=== PATIENT | female | born 1940 | race Caucasian/White ===

== ENCOUNTER 2019-12-18 07:12 | Inpatient (IN) | payer MEDICARE, OTHER ==
[~2019-12-18] VITALS: Ht 175.3 cm; Wt 75.5 kg
[~2019-12-18 07:12] MED LIST: ACET-2065 PO; ALBU8.5H5 INH; AMLO5TAB4 PO; ASPI-624 PO; ATEN25TA PO; AZIT250T PO; BUDE10.2 INH; CEFU500T PO; HYDR25TA6 PO; NICO-487 TD; PRED20TA PO
--- NOTE | 2019-12-18 07:17 | NUR ---
THIS IS A 79 YEAR OLD FEMALE WHO WAS BIB BY AMBULANCE DUE TO SOB X 2 DAYS PT HAS HX OF COPD. PT HAS HOME OXYGEN AT 5LNC. PT RECEIVED DUONEB AND ALBUTERAL IN ROUTE. PT A&O X 4, SOB WITH MINIMAL EXCERTION. 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 AND CYCLE VS. AT BS.
[2019-12-18] MEDS ORDERED: DEXAMETHASONE 4 MG/ML, 1ML IVPush ONE (07:30)
[2019-12-18] MEDS ORDERED: DEXAMETHASONE 4 MG/ML, 1ML ONE (07:33)
--- NOTE | 2019-12-18 07:41 | NUR ---
TASK RN NOTE: PT MEDICATED PER EMAR. LAB AT BEDSIDE. HOB TO LEVEL OF COMFORT. REMAINS AT BEDSIDE.
--- NOTE | 2019-12-18 07:55 | NUR ---
SPOKE WITH RT DENISE REGARDING POSSIBLE CPAP
[2019-12-18] MEDS ORDERED: ALBUTEROL/IPRATROPIUM 2.5MG/0.5MG, 3 ML ONE (08:07)
[2019-12-18 08:08] LABS: BASOPHILS # (AUTO) 0.03 x10^3/uL (0-0.1); BASOPHILS % (AUTO) 1 % (0-1); EOSINOPHILS # (AUTO) 0.11 x10^3/uL (0-0.4); EOSINOPHILS % (AUTO) 2 % (1-7); LYMPHOCYTES # (AUTO) 1.07 x10^3/uL (1-3.4); LYMPHOCYTES % (AUTO) 15 % (22-44); MD NO; MEAN CORPUSCULAR HEMOGLOBIN 31.3 pg (27.0-34.8); MEAN CORPUSCULAR HGB CONC 33.3 g/dL (32.4-35.8); MEAN PLATELET VOLUME 9.6 fL (7.4-10.4); MONOCYTES # (AUTO) 0.71 x10^3/uL (0.2-0.8); MONOCYTES % (AUTO) 10 % (2-9); NEUTROPHILS # (AUTO) 5.06 x10^3/uL (1.8-6.8); NEUTROPHILS % (AUTO) 73 % (42-75); PLATELET COUNT 189 x10^3/uL (130-400); RED BLOOD COUNT 4.35 x10^6/uL (3.82-5.3); RED CELL DISTRIBUTION WIDTH 14.4 % (9.6-15.2)
--- NOTE | 2019-12-18 08:11 | NUR ---
HOWIE RT IN ROOM, PT STATES SHE DOES NOT WANT A C-PAP.
[2019-12-18 08:22] LABS: ALBUMIN 3.8 g/dL (3.4-5.0); ANION GAP 5 mmol/L (5-15); CALCIUM 9.4 mg/dL (8.5-10.1); CHLORIDE 101 mmol/L (98-107)
[2019-12-18 08:27] LABS: ALANINE AMINOTRANSFERASE 21 U/L (12-78); ALKALINE PHOSPHATASE 67 U/L (45-117); BILIRUBIN,TOTAL 0.4 mg/dL (0.2-1.0); CREATININE 0.72 mg/dL (0.55-1.02); TOTAL PROTEIN 6.9 g/dL (6.4-8.2)
[2019-12-18] MEDS ORDERED: ALBUTEROL/IPRATROPIUM 2.5MG/0.5MG, 3 ML NEB ONE (08:30)
--- NOTE | 2019-12-18 08:32 | NUR ---
PT RESTING, RESP LABORED, HEAD OF BED UP.
[2019-12-18 08:40] LABS: PROTIME 9.4 Seconds (9.6-11.5)
[2019-12-18] MEDS ORDERED: POTASSIUM CHLORIDE 10% 40 MEQ/30 ML UDC PO ONE (09:00)
[2019-12-18] MEDS ORDERED: POTASSIUM CHLORIDE 20 MEQ PACKET ONE (09:08)
--- NOTE | 2019-12-18 09:13 | NUR ---
ORDERED MEDICATION FROM PHARMACY.
--- NOTE | 2019-12-18 09:14 | NUR ---
PT WILL BE ADMITTED, COPD AND R/O COVID-19
--- NOTE | 2019-12-18 09:20 | NUR ---
EXPLAINED TO AT LENGTH NO VISITORS WHEN PATIENT IS ADMITTED DUE TO COVID-19 R/O. STATES WE HAVE NEVER BEEN APART IN 60 YEARS. INCREASE EMOTIONAL SUPPORT GIVEN.
[2019-12-18 09:29] LABS: D-DIMER (DIC) 0.38 ug/mlFEU (0.00-0.52)
--- NOTE | 2019-12-18 09:49 | NUR ---
ASSISTED PATIENT UP TO BSC. SEVERE SOB, BACK TO BED WITH ASSIST
--- NOTE | 2019-12-18 10:27 | NUR ---
BREAKFAST FOR PATIENT AND WITH COFFEE PROVIDED. PT VERBALZIED NO OTHER NEEDS AT THIS TIME.
[2019-12-18] MEDS: methylPREDNISolone SOD SUCC 125 MG/2 ML IVPush SCH ×3 (10:30→22:41)
[2019-12-18] MEDS ORDERED: ONDANSETRON ODT 4 MG PO PRN (10:30)
[2019-12-18] MEDS ORDERED: ONDANSETRON 2MG/ML, 2ML IVPush PRN (10:30)
[2019-12-18] MEDS ORDERED: ENALAPRILAT 1.25 MG/ML, 2ML IVPush PRN (10:30)
[2019-12-18] MEDS ORDERED: POLYETHYLENE GLYCOL 17 GM PACKET PO PRN (10:30)
[2019-12-18] MEDS ORDERED: TRAZODONE 50MG TABLET PO PRN (10:30)
[2019-12-18] MEDS ORDERED: ACETAMINOPHEN 325 MG TABLET PO PRN (10:30)
--- NOTE | 2019-12-18 11:07 | NUR ---
PT SLEEPING, RESP EVEN AND UNLABORED.
--- NOTE | 2019-12-18 12:21 | NUR ---
BREAK RN: LUNCH PROVIDED TO PATIENT AT THIS TIME. PT STATES SHE DOESN'T FEEL LIKE EATING AT THIS TIME. LUNCH TRAY LEFT AT BEDSIDE. PT RESTING ON GURNEY, LAYING ON SIDE. NO ACUTE DISTRESS NOTED AT THIS TIME. RESP EVEN AND UNLABORED. SKIN SLIGHTLY PALE, WARM AND DRY. PT ON CONT BP, CARDIAC AND SPO2 MONITORS. CALL LIGHT WITHIN REACH.
--- NOTE | 2019-12-18 12:54 | NUR ---
REPORT TO JASON RICHTER, PLAN OF CARE DISCUSSED
[2019-12-18 13:34] VITALS: BP 108/61
[2019-12-18] MEDS: ALBUTEROL/IPRATROPIUM 2.5MG/0.5MG, 3 ML NPPB SCH ×2 (14:58→20:15)
[2019-12-18] MEDS: POTASSIUM CHLORIDE 20 MEQ TAB.ER.PRT PO SCH (16:34)
[2019-12-18] MEDS: NICOTINE 14MG/24 HR PATCH.TD24 TD SCH (16:34)
[2019-12-18 19:48] VITALS: BP 149/66
[2019-12-18] MEDS: GUAIFENESIN ER 600 MG TABLET PO SCH (21:08)
[2019-12-18] MEDS: DOXYCYCLINE 100MG CAP PO SCH (21:09)
[2019-12-19 03:12] VITALS: BP 113/66
[2019-12-19] MEDS: methylPREDNISolone SOD SUCC 125 MG/2 ML IVPush SCH ×4 (04:27→23:40)
[2019-12-19] MEDS: ASPIRIN 81 MG TABLET EC PO SCH (06:14)
[2019-12-19] MEDS: ALBUTEROL/IPRATROPIUM 2.5MG/0.5MG, 3 ML NPPB SCH ×4 (07:00→19:19)
[2019-12-19 07:52] VITALS: BP 151/67
[2019-12-19] MEDS: SENNA/DOCUSATE TABLET PO SCH (08:54)
[2019-12-19] MEDS: POTASSIUM CHLORIDE 20 MEQ TAB.ER.PRT PO SCH ×2 (08:54→17:42)
[2019-12-19] MEDS: GUAIFENESIN ER 600 MG TABLET PO SCH ×2 (08:55→20:55)
[2019-12-19] MEDS: ATENOLOL 25 MG TABLET PO SCH (08:55)
[2019-12-19] MEDS: HYDROCHLOROTHIAZIDE 25 MG TABLET PO SCH (08:55)
[2019-12-19] MEDS: DOXYCYCLINE 100MG CAP PO SCH ×2 (08:55→20:55)
[2019-12-19] MEDS: AMLODIPINE 5 MG TABLET PO SCH (09:00)
[2019-12-19] MEDS: ENOXAPARIN 40 MG/0.4 ML SQ SCH (12:30)
[2019-12-19 13:23] VITALS: BP 138/72
[2019-12-19] MEDS: NICOTINE 14MG/24 HR PATCH.TD24 TD SCH (17:42)
[2019-12-19 19:51] VITALS: BP 139/68
[2019-12-20 01:16] VITALS: BP 112/57
[2019-12-20 05:16] LABS: MEAN CORPUSCULAR HEMOGLOBIN 31.1 pg (27.0-34.8); MEAN CORPUSCULAR HGB CONC 33.1 g/dL (32.4-35.8); MEAN PLATELET VOLUME 10.2 fL (7.4-10.4); PLATELET COUNT 181 x10^3/uL (130-400); RED BLOOD COUNT 4.28 x10^6/uL (3.82-5.3); RED CELL DISTRIBUTION WIDTH 14.4 % (9.6-15.2)
[2019-12-20] MEDS: methylPREDNISolone SOD SUCC 125 MG/2 ML IVPush SCH ×4 (05:20→23:35)
[2019-12-20] MEDS: ASPIRIN 81 MG TABLET EC PO SCH (05:20)
[2019-12-20 05:24] LABS: CHLORIDE 99 mmol/L (98-107)
[2019-12-20 05:28] LABS: ALBUMIN 3.4 g/dL (3.4-5.0); ANION GAP 9 mmol/L (5-15); CALCIUM 9.4 mg/dL (8.5-10.1); CREATININE 0.94 mg/dL (0.55-1.02)
[2019-12-20] MEDS: ALBUTEROL/IPRATROPIUM 2.5MG/0.5MG, 3 ML NPPB SCH ×4 (06:20→19:07)
[2019-12-20 06:22] LABS: BASOPHILS # (AUTO) 0.02 x10^3/uL (0-0.1); BASOPHILS % (AUTO) 0 % (0-1); EOSINOPHILS % (AUTO) 0 % (1-7); LYMPHOCYTES # (AUTO) 0.56 x10^3/uL (1-3.4); LYMPHOCYTES % (AUTO) 4 % (22-44); MD SCAN; MONOCYTES # (AUTO) 0.31 x10^3/uL (0.2-0.8); MONOCYTES % (AUTO) 2 % (2-9); NEUTROPHILS % (AUTO) 94 % (42-75)
[2019-12-20] MEDS: ATENOLOL 25 MG TABLET PO SCH ×2 (09:00→09:16)
[2019-12-20] MEDS: SENNA/DOCUSATE TABLET PO SCH ×2 (09:00→09:16)
[2019-12-20] MEDS: DOXYCYCLINE 100MG CAP PO SCH ×2 (09:15→21:05)
[2019-12-20] MEDS: POTASSIUM CHLORIDE 20 MEQ TAB.ER.PRT PO SCH ×2 (09:15→17:43)
[2019-12-20] MEDS: GUAIFENESIN ER 600 MG TABLET PO SCH ×2 (09:16→21:05)
[2019-12-20] MEDS: AMLODIPINE 5 MG TABLET PO SCH (09:16)
[2019-12-20] MEDS: HYDROCHLOROTHIAZIDE 25 MG TABLET PO SCH (09:16)
[2019-12-20 09:26] VITALS: BP 117/68
[2019-12-20] MEDS: ENOXAPARIN 40 MG/0.4 ML SQ SCH (12:30)
[2019-12-20 15:12] VITALS: BP 169/81
[2019-12-20] MEDS ORDERED: AZIT250T PO (15:15)
[2019-12-20] MEDS ORDERED: PRED20TA PO (15:15)
[2019-12-20] MEDS ORDERED: LORazepam 0.5MG TABLET PO ONE (16:00)
[2019-12-20] MEDS ORDERED: OMNIPAQUE 350 MG/ML, 75ML BOTTLE ONE (16:37)
[2019-12-20] MEDS: NICOTINE 14MG/24 HR PATCH.TD24 TD SCH (17:12)
[2019-12-20 21:09] VITALS: BP 151/68
[2019-12-21 02:35] VITALS: BP 106/53
[2019-12-21] MEDS: ASPIRIN 81 MG TABLET EC PO SCH (05:20)
[2019-12-21] MEDS: methylPREDNISolone SOD SUCC 125 MG/2 ML IVPush SCH ×2 (05:20→08:54)
[2019-12-21] MEDS ORDERED: ALBUTEROL/IPRATROPIUM 2.5MG/0.5MG, 3 ML NPPB PRN (07:30)
[2019-12-21 08:10] VITALS: BP 168/75
[2019-12-21] MEDS: DOXYCYCLINE 100MG CAP PO SCH (08:53)
[2019-12-21] MEDS: HYDROCHLOROTHIAZIDE 25 MG TABLET PO SCH (08:53)
[2019-12-21] MEDS: POTASSIUM CHLORIDE 20 MEQ TAB.ER.PRT PO SCH (08:53)
[2019-12-21] MEDS: GUAIFENESIN ER 600 MG TABLET PO SCH (08:53)
[2019-12-21] MEDS: AMLODIPINE 5 MG TABLET PO SCH (08:54)
[2019-12-21] MEDS: ATENOLOL 25 MG TABLET PO SCH (08:54)
[2019-12-21] MEDS: SENNA/DOCUSATE TABLET PO SCH (08:54)
[2019-12-21] MEDS: ENOXAPARIN 40 MG/0.4 ML SQ SCH (13:46)
== END 2019-12-21 15:00 | disposition home or self-care (01) | DRG 189 ==
LOC: ED 07:36 → EDIP 09:07 → 3N 13:18 → DCLOUNGE 12-21 14:54
PROVIDERS: ADMIT Internal Medicine; ATTEND Family Medicine
DX: J96.21 Acute and chronic respiratory failure with hypoxia (principal); J44.1 Chronic obstructive pulmonary disease with (acute) exacerbation; K50.90 Crohn's disease, unspecified, without complications; E87.6 Hypokalemia; I10 Essential (primary) hypertension; J44.9 Chronic obstructive pulmonary disease, unspecified; F17.210 Nicotine dependence, cigarettes, uncomplicated; Z66 Do not resuscitate; Z98.42 Cataract extraction status, left eye; Z98.41 Cataract extraction status, right eye; Z90.710 Acquired absence of both cervix and uterus; Z90.49 Acquired absence of other specified parts of digestive tract; Z79.82 Long term (current) use of aspirin; Z99.81 Dependence on supplemental oxygen; Z03.818 Encounter for observation for suspected exposure to other biological agents ruled out
CPT/HCPCS: 36415; 71045; 71260; 80053; 80069; 82728; 83605; 83735; 84145; 85025; 85049; 85379; 85384; 85610; 85730; 87040; 87635; 93005; 94640; 96374; G0378; J1100; Q9967; J2930; U0001-CS